=== PATIENT | male | born 1975 | race Caucasian/White ===

== ENCOUNTER 2017-12-29 00:35 | Emergency (ER) | payer SELFPAY ==
[2017-12-29 01:09] VITALS: O2SAT 99
--- NOTE | 2017-12-29 02:46 | C.PDOC ---
History Of Present Illness 42 year old male, with a history of chronic foot pain, who presents to the emergency department complaining of pain at base of left foot onset for x1 week. 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 Patient states he gets intermittent bouts of athlete 's foot. He used OTC spray without relief and states the pain worsens with ambulation. He denies any other medical complaints. PMD: None provided. Time Seen by Provider: 12/29/17 02:17 Chief Complaint (Nursing): Lower Extremity Problem/Injury History Per: Patient History/Exam Limitations: no limitations Onset/Duration Of Symptoms: Days (x1 week) Current Symptoms Are (Timing): Still Present Past Medical History Reviewed: Historical Data, Nursing Documentation, Vital Signs Vital Signs: Last Vital Signs Temp 97.2 F L 12/29/17 02:59 Pulse 81 12/29/17 02:59 Resp 20 12/29/17 02:59 BP 100/68 12/29/17 02:59 Pulse Ox 99 12/29/17 02:59 - Medical History PMH: Chronic Pain (athlete's foot) Surgical History: No Surg Hx Family History: States: No Known Family Hx - Social History Hx Tobacco Use: Yes (Heavy smoker) Hx Alcohol Use: Yes Hx Substance Use: No - Immunization History Hx Tetanus Toxoid Vaccination: No Hx Influenza Vaccination: No Hx Pneumococcal Vaccination: No Review Of Systems Except As Marked, All Systems Reviewed And Found Negative. Musculoskeletal: Positive for: Foot Pain (left) Physical Exam - Physical Exam Appears: Other (comfortable) Skin: Normal Color, Warm, Dry Head: Atraumatic, Normacephalic Eye(s): bilateral: Normal Inspection, PERRL, EOMI Neck: Normal ROM Cardiovascular: Rhythm Regular, No Murmur Respiratory: Normal Breath Sounds, No Wheezing Extremity: Normal ROM (upper and lower extremities), Other (left foot at plantar aspect of 2nd, 3rd, and 4th toes open bulla. toe's skin erythematous with excoriation. Fungal in appearance) Pulses: Left Dorsalis Pedis: Normal, Right Dorsalis Pedis: Normal Neurological/Psych: Oriented x3 ED Course And Treatment O2 Sat by Pulse Oximetry: 99 (RA) Pulse Ox Interpretation: Normal Progress Note: Initial Plan: foot was dressed and patient was prescribed medication both topical and oral. Disposition Counseled Patient/Family Regarding: Diagnosis, Need For Followup, Rx Given - Disposition Referrals: [facility] [Outside] Disposition: HOME/ ROUTINE Additional Instructions: FOLLOW UP WITH YOUR DOCTOR/CLINIC IN 1-2 DAYS USE MEDICATION DIRECTED RETURN TO ER IF SYMPTOMS WORSEN Prescriptions: Fluconazole [Diflucan] 150 mg PO ONCE #4 tab Ketoconazole 2% Cr [Nizoral] 1 appl TP BID #1 tube Instructions: Athlete's Foot (DC) Forms: [employer] (Turkmen) Print Language: BARBADIAN - Clinical Impression Clinical Impression: Tinea pedis - Scribe Statement The provider has reviewed the documentation as recorded by the Emmanuelle Briscoe Provider Attestation: All medical record entries made by the Emmanuelle were at my direction and personally dictated by me. I have reviewed the chart and agree that the record accurately reflects my personal performance of the history, physical exam, medical decision making, and the department course for this patient. I have also personally directed, reviewed, and agree with the discharge instructions and disposition.
[2017-12-29 03:00] VITALS: BP 100/68; PULSE 81; RESP 20; TEMP 97.2
== END 2017-12-29 03:00 | disposition home or self-care (01) ==
LOC: C.ER 00:35
DX: B35.3 Tinea pedis (principal)

== ENCOUNTER 2018-10-19 10:13 | Emergency (ER) | payer SELFPAY ==
[2018-10-19 10:13] VITALS: BMI 28.1
[2018-10-19 10:18] VITALS: BP 123/83; PULSE 86; RESP 18; TEMP 98.4; O2SAT 98
--- NOTE | 2018-10-19 11:14 | C.PDOC ---
History Of Present Illness 42 y/o male pt presents to the ER c/o flu like sx for x2 days. Associated sx includes headache, eye pain, neck pain, sore throat, chest congestion and joint pain. Pt has +sick contact with his son who was recently diagnosed with the flu. Pt currently has no other associated sx or complaints. Time Seen by Provider: 10/19/18 10:49 Chief Complaint (Nursing): Flu-like Symptoms History Per: Patient History/Exam Limitations: no limitations Onset/Duration Of Symptoms: Days (x2) Current Symptoms Are (Timing): Still Present Past Medical History Reviewed: Historical Data, Nursing Documentation, Vital Signs Vital Signs: Last Vital Signs Temp 98.4 F 10/19/18 10:16 Pulse 86 10/19/18 10:16 Resp 18 10/19/18 10:16 BP 123/83 10/19/18 10:16 Pulse Ox 98 10/19/18 10:16 - Medical History PMH: Chronic Pain (athlete's foot) Family History: States: No Known Family Hx - Social History Hx Tobacco Use: Yes (Heavy smoker) Hx Alcohol Use: Yes Hx Substance Use: No - Immunization History Hx Tetanus Toxoid Vaccination: No Hx Influenza Vaccination: No Hx Pneumococcal Vaccination: No Review Of Systems Except As Marked, All Systems Reviewed And Found Negative. Eyes: Positive for: Pain ENT: Positive for: Throat Pain Musculoskeletal: Positive for: Neck Pain, Other (chest congestion; joint pain ) Neurological: Positive for: Headache Physical Exam - Physical Exam Appears: Non-toxic, No Acute Distress Skin: Warm, Dry, No Rash Head: Normacephalic Eye(s): bilateral: Normal Inspection, PERRL, EOMI Ear(s): Bilateral: Normal Nose: Normal Oral Mucosa: Moist Throat: Erythema, No Exudate, Other (uvula midline) Chest: Symmetrical Cardiovascular: Rhythm Regular Respiratory: Normal Breath Sounds, No Rales, No Rhonchi, No Wheezing Neurological/Psych: Oriented x3, Normal Speech ED Course And Treatment O2 Sat by Pulse Oximetry: 98 (RA) Pulse Ox Interpretation: Normal Medical Decision Making Medical Decision Making: Impression: mild flu-like sx with URI sx Plans: -- Flu swab -- toradol -- sudafed Disposition - Disposition Referrals: [facility] [place] [facility] [Outside] [facility] [Outside] Disposition: HOME/ ROUTINE Disposition Time: 13:09 Condition: GOOD Additional Instructions: supportive care, Motrin, sudafed, po hydration and follow up with pcp. Prescriptions: Ibuprofen [Motrin] 600 mg PO Q6 #20 tab Pseudoephedrine HCl [Sudafed] 30 mg PO Q8 #12 tablet Instructions: Viral Upper Respiratory Infection, Adult (DC) Forms: [employer] (Greek) - Clinical Impression Clinical Impression: Viral upper respiratory infection - Scribe Statement The provider has reviewed the documentation as recorded by the Emmanuelle Ramirez Do Provider Attestation: All medical record entries made by the Scribe were at my direction and personally dictated by me. I have reviewed the chart and agree that the record accurately reflects my personal performance of the history, physical exam, medical decision making, and the department course for this patient. I have also personally directed, reviewed, and agree with the discharge instructions and disposition.
== END 2018-10-19 13:09 | disposition home or self-care (01) ==
LOC: C.ER 10:13
DX: J06.9 Acute upper respiratory infection, unspecified (principal); F17.210 Nicotine dependence, cigarettes, uncomplicated
CPT/HCPCS: 87804; 96372; 99283; J1885

== ENCOUNTER 2018-10-27 11:15 | Emergency (ER) | payer SELFPAY ==
[2018-10-27 11:15] VITALS: BMI 28.1
--- NOTE | 2018-10-27 11:29 | C.PDOC ---
History Of Present Illness 42 yr old male w/ no ppmhx p/w R sided facial redness / swellling. He notes redness / swelling started this morning, but over the past 2-3 weeks he has had pain in his b/l sinuses. He notes that around this time he normally has pain in his sinuses but has never had redness. He denies any pain when he moves his eye but is concerned the infection could be spreading in the area. No fall or trauma. He notes mucus like nasal discharge but no pus like discharge. No fall or trauma. No headache. No fever, chills or night sweats. No neck pain or stiffness. No N/V. No other complaints No PMD. Time Seen by Provider: 10/27/18 11:28 Chief Complaint (Nursing): Abnormal Skin Integrity Past Medical History Vital Signs: Last Vital Signs Temp 99.0 F 10/27/18 11:24 Pulse 90 10/27/18 11:24 Resp 18 10/27/18 11:24 BP 118/80 10/27/18 11:24 Pulse Ox 100 10/27/18 11:24 - Medical History PMH: Chronic Pain (athlete's foot) Family History: States: Unknown Family Hx - Social History Hx Tobacco Use: Yes (Heavy smoker) Hx Alcohol Use: Yes Hx Substance Use: No - Immunization History Hx Tetanus Toxoid Vaccination: No Hx Influenza Vaccination: No Hx Pneumococcal Vaccination: No Review Of Systems Constitutional: Negative for: Fever, Chills, Sweats Eyes: Negative for: Pain, Vision Change, Conjunctivae Inflammation, Eyelid Inflammation, Redness ENT: Positive for: Nose Pain, Nose Discharge, Nose Congestion. Negative for: Ear Pain, Ear Discharge, Mouth Pain, Mouth Swelling, Throat Pain, Throat Swelling, Other Cardiovascular: Negative for: Chest Pain, Palpitations, Orthopnea Respiratory: Negative for: Cough, Shortness of Breath Gastrointestinal: Negative for: Nausea, Vomiting Genitourinary: Negative for: Dysuria, Frequency Musculoskeletal: Negative for: Neck Pain, Shoulder Pain Skin: Positive for: Other (redness to R side of face) Neurological: Negative for: Weakness Physical Exam - Physical Exam Appears: Well, Non-toxic, No Acute Distress Skin: Normal Color, Warm Head: Atraumatic, Normacephalic, Other (redness along R maxillary sinus inferor to R medial eye. No canthus involvement. ) Eye(s): bilateral: Normal Inspection, PERRL, EOMI, Other (no pain w/ eye movement. no entrapment) Ear(s): Bilateral: Normal Nose: No Flaring, No Discharge, No Epistaxis, No Deformity, No Tenderness Oral Mucosa: Moist Tongue: Normal Appearing, No Swelling, No Lesions Lips: Normal Appearing, No Swelling, No Contusion Teeth: Normal Dentition, No Caries, No Edentulous Gingiva: Normal Appearing Throat: Normal, No Erythema, No Exudate, No Drooling, No Mass Neck: Normal, Normal ROM, Supple, Other (no meningeal signs) Lymphatic: Normal Exam, No Adenopathy Chest: No Symmetrical, No Deformity Cardiovascular: Rhythm Regular Respiratory: Normal Breath Sounds Gastrointestinal/Abdominal: Normal Exam Back: Normal Inspection, No CVA Tenderness Extremity: Normal ROM, No Tenderness Neurological/Psych: Oriented x3, Normal Speech, Normal Cognition, No Cerebellar Signs, Normal Motor ED Course And Treatment - Laboratory Results Result Diagrams: 10/27/18 12:32 10/27/18 12:32 O2 Sat by Pulse Oximetry: 100 Against Medical Advice - AMA Patient Left Against Medical Advice: The risks of leaving were explained to the patient and include, but are not limited to, worsening of known or currently unknown conditions, permanent disability and from undiagnosed or untreated conditions. The patient has the capacity to make this informed decision and understands my explanation of the current medical problem and risks of leaving. The patient voluntarily accepts these risks and signed an AMA form documenting our conversation. The patient was given the opportunity to ask questions and reconsider. The patient was encouraged to return to the Emergency Department at any time for further care. Medical Decision Making Medical Decision Makin yr old male w/ no ppmhx p/w R sided facial redness / swellling. ?abscess vs local cellulitis. Unlikely postseptal cellulitis, and likely cellulitis w/ sinusitis, given time frame however and skin findings will seek CT Pt in NAD does not request pain meds. 1420 Pt seeking to sign out AMA: I endorsed possible infection requiring drainage and additional evaulation. Pt notes that he cannot stay and has outside plans already. I endorsed possible / disability and he notes understanding. Given good capacitance, Pt signed out AMA. Given script for ABX and instructions to return JEFFERY. Pt in NAD Disposition - Disposition Disposition: AGAINST MEDICAL ADVICE Disposition Time: 14:24 Condition: UNKNOWN Prescriptions: Amoxicillin/Clavulanate [Augmentin 875 MG-125 MG] 1 tab PO BID 7 Days #14 tab Forms: [employer] (Estonian) - Clinical Impression Clinical Impression: Skin complaints
[2018-10-27 11:34] VITALS: BP 118/80; PULSE 90; RESP 18; TEMP 99; O2SAT 100
[2018-10-27] MEDS ORDERED: Iohexol 300 100 ML IJ ONE (12:33)
[2018-10-27 12:46] LABS: BASO # 0.1 K/uL (0.0-0.2); BASO % 1.1 % (0.0-2.0); EOS # 0.1 K/uL (0.0-0.7); EOS % 0.8 % (0.0-4.0); HEMOGLOBIN 15.1 g/dL (12.0-18.0); LYMPH # 3.6 K/uL (1.0-4.3); LYMPH % 28.2 % (20.0-40.0); MEAN CELL VOLUME 93.7 fL (80.0-94.0); MEAN CORPUSCULAR HEMOGLOBIN 31.4 pg (27.0-31.0); MEAN CORPUSCULAR HGB CONC 33.5 g/dL (33.0-37.0); MEAN PLATELET VOLUME 8.1 fL (7.2-11.7); MONO # 1.3 K/uL (0.0-0.8); MONO % 10.2 % (0.0-10.0); NEUT # 7.7 K/uL (1.8-7.0); NEUT % 59.7 % (50.0-75.0); RBC 4.82 Mil/uL (4.40-5.90); RED CELL DISTRIBUTION WIDTH 12.8 % (11.5-14.5); WHITE BLOOD COUNT 12.8 K/uL (4.8-10.8)
[2018-10-27 12:59] LABS: ALB/GLOB RATIO 1.5 (1.0-2.1); ALBUMIN 4.7 g/dL (3.5-5.0); ALT/SGPT 44 U/L (21-72); AST/SGOT 33 U/L (17-59); BLOOD UREA NITROGEN 13 mg/dL (9-20); CALCIUM 9.4 mg/dl (8.6-10.4); GFR NON-AFRICAN AMERICAN > 60
--- NOTE | 2018-10-27 15:02 | CT ---
Date of service: 10/27/2018 PROCEDURE: CT ORBITS WITH CONTRAST. HISTORY: Redness around L maxillary sinus. COMPARISON: None available. TECHNIQUE: Following administration of intravenous iodinated contrast, axial CT images of the orbits were obtained. Coronal and sagittal reformats were generated. Intravenous contrast dose: 100 cc Visipaque 300 Radiation dose: Total exam DLP = 903.1 mGy-cm. This CT exam was performed using one or more of the following dose reduction techniques: Automated exposure control, adjustment of the mA and/or kV according to patient size, and/or use of iterative reconstruction technique. FINDINGS: There is mild right premaxillary soft tissue swelling which extends superiorly into the infraorbital of pre maxillary soft tissues and slightly into the inferior periorbital soft tissues as well. There is extension superomedially over the right nasal bones and bridge of the nose into the glabella. No evidence of postseptal extension of these presumed inflammatory changes/cellulitis. Globes intact and lenses appropriately located. There are no retrobulbar hemorrhages or collections. Optic nerves and extraocular musculature unremarkable.. There are no drainable fluid collections OTHER: There is mild mucosal thickening in the right maxillary antrum.. There is a small mucous retention cyst or focus polypoid like mucosal thickening left maxillary sinus. Mild mucosal thickening noted within the ethmoid air complex as well. IMPRESSION: Findings consistent with a right pre maxillary and right periorbital soft tissue inflammatory process/cellulitis. No drainable fluid collections. No evidence of postseptal extension. Mild mucoperiosteal inflammatory changes within the aforementioned paranasal sinuses as above.
== END 2018-10-27 14:30 | disposition left against medical advice (07) ==
LOC: C.ER 11:15
DX: L98.9 Disorder of the skin and subcutaneous tissue, unspecified (principal); F17.210 Nicotine dependence, cigarettes, uncomplicated
CPT/HCPCS: 70481; 80053; 85025; 87040; 99285; Q9967

== ENCOUNTER → 2018-10-27 | Emergency (ER) | payer SELFPAY | END | disposition home or self-care (01) | LOC: C.ER 15:34 ==